=== PATIENT | female | born 1995 | race Caucasian/White ===

== ENCOUNTER 2020-04-20 04:09 | Outpatient (CLI) ==
[~2020-04-20] VITALS: Ht 154.9 cm; Wt 75.7 kg
[2020-04-20 04:38] VITALS: BP 124/78
[2020-04-20] MEDS ORDERED: PEPC40TA12 PO (04:46)
[2020-04-20] MEDS ORDERED: PRENTAB9 PO (04:46)
[2020-04-20 06:40] VITALS: BP 121/57
[2020-04-20] MEDS ORDERED: BUTORPHANOL 2 MG/ML INJ (J0595) IV ONE (06:45)
[2020-04-20] MEDS ORDERED: BICITRA 30ML SOLN UDC PO ONE (06:45)
[2020-04-20] MEDS ORDERED: PROMETHAZINE INJ 25 MG/ML VIAL (J2550) IV ONE (06:45)
[2020-04-20 07:13] VITALS: BP 118/62
[2020-04-20 07:20] VITALS: BP 118/62
--- NOTE | 2020-04-20 10:13 | IPNPDOC ---
Text Note Date of Service The patient was seen on 04/20/20. NOTE Triage Note (late entry) Radha is a 25yo with SIUP at 39w4d presenting with regular painful ctx that started around 0200. No LOF, no vaginal bleeding, good movement. Vitals wnl, afebrile General: WDWN, breathing through ctx Abdomen: soft, gravid, NTTP Extremities: no edema of BLE SCE (at 0500): 2/80/-3, posterior re-check by RN at 0630 secondary to patient discomfort: unchanged Cat I FHRT [place]: ctx q5min Assessment: Radha is a 25yo with SIUP at 39w4d presenting with regular painful ctx that started around 0200. Vitals wnl, benign exam. SCE 2/80/-3, unchanged over 1.5hr. Cat I FHRT. Plan: -2mg IV stadol x1 with 12.5mg IV phenergan x1 for pain control -After patient has some rest, will re-check SCE. If she has not had any cervical change and there remains Cat I FHRT, will discharge to home. If she progresses into labor, will admit. MD JEFFERSON Eng Fishbone I+O Manuel PAULINO I+O Vital Signs Date Time Temp Pulse Resp B/P (MAP) Pulse Ox O2 Delivery O2 Flow Rate FiO2 04/20/20 07:20 98.4 96 18 118/62 Room Air Grisel Aburto MD April 20, 2020 10:13
--- NOTE | 2020-04-24 08:21 | DSES ---
DATE OF ADMISSION: 04/20/2020 DATE OF DISCHARGE: 04/20/2020 24-year-old 1, para 0, last menstrual period (LMP) July 18, 2019. Estimated date of confinement (EDC) April 23, 2020 at 39 and 4, was admitted with moderate contractions and appeared to be in significant distress. On examination by the triage physician, she was found to be 2 cm high posterior. She has a category 1 strip. She was given Stadol and Phenergan. The contractions spaced out to 6-10 minutes, moderate variability after the Stadol worn off. She did not have any pain, was not complaining. Her blood pressure on discharge was 118/62, respirations 18, pulse 96, temperature 98.4, urine 1.015, pH and the rest was negative. Her risk factors is she has a history of migraines, showed magnesium. She had a neurological consult. She is on B6. She also has excessive weight gain. She has had 46 pounds weight gain to date. On examination prior to discharge again 2 cm, posterior high presenting part. No vaginal bleeding, no loss, no bleeding, no contractions. The patient was discharged with precautions and has an appointment on the 04/24/2020. She is encouraged to keep that appointment and anytime, she returns to bring her passport with her. Review precautions, premature rupture of membranes, bleeding, contractions 5-7 minutes apart, moderate intensity 40-60 seconds. kick chart, 10 over 24, 6 and 2. The patient expressed understanding will be discharged to follow up the office, Dr. EFFIE YAP
== END 2020-04-20 10:56 | disposition home or self-care (01) ==
LOC: M LDO 04:09
PROVIDERS: ATTEND Obstetrics & Gynecology
DX: O60.03 Preterm labor without delivery, third trimester (principal); Z3A.39 39 weeks gestation of pregnancy
CPT/HCPCS: 59025; 96374; 96375; G0378; G0463; J0595

== ENCOUNTER 2020-04-20 23:26 | Inpatient (IN) | payer OTHER ==
[~2020-04-20] VITALS: Ht 152.4 cm; Wt 67.0 kg
[~2020-04-20 23:26] MED LIST: PEPC40TA12 PO; PRENTAB9 PO
[2020-04-20 23:46] VITALS: BP 101/55
[2020-04-21] VITALS (61 sets, daily range): BP systolic 80–148; BP diastolic 45–86
[2020-04-21] MEDS ORDERED: LACTATED RINGER'S 1000 ML IV STA (00:06)
[2020-04-21] MEDS ORDERED: MORPHINE 10 MG/ML 1ML VIAL (J2270) IM ONE (00:15)
[2020-04-21] MEDS ORDERED: MORPHINE 10 MG/ML 1ML VIAL (J2270) IV ONE (00:15)
[2020-04-21] MEDS ORDERED: PROMETHAZINE INJ 25 MG/ML VIAL (J2550) IV ONE (00:15)
[2020-04-21 00:47] LABS: HEMATOCRIT 41.6 % (36.0-47.0); HEMOGLOBIN 13.9 g/dl (12.0-15.5); MEAN CORPUSCULAR HEMOGLOBIN 28.8 pg (27.0-33.0); MEAN CORPUSCULAR HGB CONC 33.4 g/dl (32.0-36.5); MEAN CORPUSCULAR VOLUME 86.3 fl (80.0-96.0); PLATELET COUNT, AUTOMATED 180 10^3/uL (150-450); RED BLOOD COUNT 4.82 10^6/uL (4.00-5.40)
[2020-04-21] MEDS: LR 1,000 ML IV SCH ×2 (00:58→09:14)
[2020-04-21] MEDS ORDERED: FAMOTIDINE IV BAG 20 MG in IV 1 EA IV ONE (01:00)
--- NOTE | 2020-04-21 01:04 | HPEPDOC ---
Obstetrical History & Physical General Date of Admission April 21, 2020 at 00:06 History of Present Illness patient is a 25 yo G1 @ 39+5wks gestation presents with regular painful contraction x 1 day. she was checked with her last visit yesterday to be 2 cm. denies LOF/VB. +FM. 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 Past Medical History Medical History migraines Surgical History: Denies/None Family History Significant Family History: No pertinent family hx Social History Marital Status: Family situation: Spouse/partner home * Smoker: non-smoker Alcohol: Denies Drugs: denies Imunizations Tdap status: current Influenza Status: current Allergies Coded Allergies: amoxicillin (Verified Allergy, Unknown, As a child, unknown reaction, 04/20/20) As a child, unknown reaction gardner (Verified Allergy, Unknown, throat swelling, 04/20/20) nickel (Verified Allergy, Unknown, rash, 04/20/20) red dye (Verified Allergy, Unknown, throat swelling, 04/20/20) Medications Scheduled Famotidine (Pepcid) 40 Mg Tablet, 1 TAB PO DAILY No.137/Iron/Folic Acd ( Vitamin Tablet) 1 Each Tablet, 1 TAB PO DAILY Physical Examination Physical Examination GENERAL: Alert and oriented times three. BREAST: . ABDOMEN: Gravid and non-tender to touch. FETUS: fetus is vertex (VTX) by [place]. HEART RATE: Regular rate and rhythm. LUNGS: Clear to auscultation (CTA). EXTREMITIES: No edema/erythema/tenderness. EFW: 3400gm Laboratory Data 24H LABS Laboratory Tests 2 04/21/20 00:08: Serology Scanned Report Hepatitis B Testing 04/21/20 00:37: Nucleated Red Blood Cells % (auto) 0.0 CBC/BMP Laboratory Tests 04/21/20 00:37 Pertinent Laboratoy Data Blood Type: O+ RBC Antibody Screen: Negative HIV: Negative Hepatitis B: Negative Rapid Plasma Reagin: Nonreactive Rubella: Immune Varicella: Immune Chlamydia/Gonorrhea: Negative Group B Streptococcus: Negative Glucose Tolerance Test: 60 Anatomy Ultrasound Placenta Location: Left Lateral Normal Anatomy: Yes Placenta Previa: No Vaginal Examination Dilation: 4 cm (per nursing check) Effacement: 90% Station: -3 Presentation: Cephalic presentation Assessment Heart Rate (FHR): 140 Variability: Moderate Accelerations: Positive Decelerations: None Tocometer Contractions: Yes Frequency: every 3-7 min. Assessment/Plan Assessment patient is a 25 yo @ 39+5wks admit to L&D for LABOR. Plan Admit and orient. Construction Accountant and consent. Diet: regular Group B Streptococcus (GBS) negative Labs and intravenous (IV) per unit protocol. Counseled on Pitocin for augmentation as needed. famotindine for acid reflux patient candidate for trial of labor. GRANT SMITH DO April 21, 2020 01:03
[2020-04-21] MEDS ORDERED: FENTANYL 2MCG/ML ROPIVACAINE 0.2% IN 0.9% NACL 100ML IVBAG As Ordered ONE (05:18)
[2020-04-21] MEDS ORDERED: ePHEDrine SULFATE 25 MG/5 ML(5MG/ML) SYRINGE As Ordered ONE (08:11)
[2020-04-21] MEDS ORDERED: ONDANSETRON 4MG/2ML VIAL IV PRN ×4 (08:15→13:15)
[2020-04-21] MEDS ORDERED: NALOXONE INJ 0.4MG/1ML VIAL (J2310 PER 1MG) IV PRN ×5 (08:15→12:35)
[2020-04-21] MEDS ORDERED: REFRIGERATOR IV KEYS XX PRN (08:15)
[2020-04-21] MEDS ORDERED: EPIDURAL/PCA KEYS XX PRN (08:15)
[2020-04-21] MEDS ORDERED: EPIDURAL COMMENT XX SCH (08:15)
[2020-04-21] MEDS ORDERED: FENTANYL/ROPIVACAINE/NACL BAG 100 ML EPIDURAL SCH (08:15)
[2020-04-21] MEDS ORDERED: diphenhydrAMINE 50MG/ML VIAL (J1200) IV PRN ×3 (08:15→12:35)
[2020-04-21] MEDS: ePHEDrine SULFATE 25 MG/5 ML(5MG/ML) SYRINGE IV PRN ×5 (08:16→08:58)
[2020-04-21] MEDS: LACTATED RINGER'S 1000 ML IV PRN ×2 (08:17→10:51)
[2020-04-21] MEDS ORDERED: LR IV ONE (09:00)
[2020-04-21] MEDS: ePHEDrine SULFATE 25 MG/5 ML(5MG/ML) SYRINGE IV SCH ×3 (09:02→09:06)
--- NOTE | 2020-04-21 10:19 | IPNPDOC ---
Text Note Date of Service The patient was seen on 04/21/20. NOTE Intrapartum Note Radha is a 25yo with SIUP at 39w5d admitted late last night for labor. She received epidural and is comfortable currently. Has had some low bp's since epidural (80's/40"s), so has received several doses of ephedrine. Afebrile SCE: 8/80/-1, AROM performed with clear fluid noted. FSE placed. Cat I-II FHRT with occasional variable decels, mod mckayla, +accels [place]: ctx q4-5min Will continue to closely monitor If continued hypotension, will request anesthesia provider to turn down epidural Plan to re-check in 2-4hr or earlier as indicated Safe to proceed Dr. Grisel Aburto MD VS,Manuel, I+O VS, Manuel, I+O Laboratory Tests 04/21/20 00:37 Vital Signs Date Time Temp Pulse Resp B/P (MAP) Pulse Ox O2 Delivery O2 Flow Rate FiO2 04/21/20 09:35 81 18 99/57 (71) 04/21/20 07:31 96.6 I&O- Last 24 Hours up to 6 AM 04/21/20 06:00 Output Total 700 ml Balance -700 ml Grisel Aburto MD April 21, 2020 10:19
--- NOTE | 2020-04-21 11:17 | IPNPDOC ---
Text Note Date of Service The patient was seen on 04/21/20. NOTE Intrapartum Note Epidural was turned down for continued hypotension and patient received another dose of ephedrine. Vitals now wnl, afebrile There continue to be recurrent deep variable decels, now with most ctx. +accels, moderate variability. [place]: ctx q3-4min SCE 9/C/-1 Discussed tracing abnormalities with patient and possibility of need for section if tracing worsens or she stops progressing Continuing to closely observe Dr. Grisel Aburto MD VS,Manuel, I+O VS, Manuel, I+O Laboratory Tests 04/21/20 00:37 Vital Signs Date Time Temp Pulse Resp B/P (MAP) Pulse Ox O2 Delivery O2 Flow Rate FiO2 04/21/20 10:45 74 18 107/57 (74) 04/21/20 10:28 98.2 I&O- Last 24 Hours up to 6 AM 04/21/20 05:59 Output Total 700 ml Balance -700 ml Grisel Aburto MD April 21, 2020 11:17
[2020-04-21] MEDS ORDERED: ceFAZolin 2 GM/D5W 50 ML IV BAG (J0690 PER 500MG) As Ordered ONE (11:33)
[2020-04-21] MEDS ORDERED: BICITRA 30ML SOLN UDC As Ordered ONE (11:33)
[2020-04-21] MEDS ORDERED: AZITHROMYCIN INJ 500MG VIAL (J0456 PER 500MG) As Ordered ONE (11:34)
[2020-04-21] MEDS ORDERED: LIDOCAINE 2% W/EPIN INJ 20ML **PRES FREE As Ordered ONE (11:44)
[2020-04-21] MEDS ORDERED: ceFAZolin SOD 2 GM in IV 1 EA IV ONE (11:45)
[2020-04-21] MEDS ORDERED: AZITHROMYCIN INJ 500 MG, VIAL MATE ADAPTER 1 EACH in D5W 250 ML IV ONE (11:45)
[2020-04-21] MEDS ORDERED: BICITRA 30ML SOLN UDC PO ONE (11:45)
[2020-04-21] MEDS ORDERED: OXYTOCIN INJ 10 UNITS/ML VIAL (J2590) As Ordered ONE ×2 (11:47→11:48)
[2020-04-21] MEDS ORDERED: PHENYLephrine HCL 500 MCG/5 ML (100MCG/ML) SYRINGE (J2370) As Ordered ONE (12:14)
[2020-04-21] MEDS ORDERED: ONDANSETRON 4MG/2ML VIAL As Ordered ONE (12:14)
[2020-04-21 12:23] LABS: CORD GAS ABE V -3.4; CORD GAS HCO3 V 22.2 MEQ/L; CORD GAS O2 SAT V 70.9 %; CORD GAS PCO2 V 42.1 mmHg; CORD GAS PH V 7.34 UNITS; CORD GAS PO2 V 32.4 mmHg; CORD GAS TCO2 V 23.5 MEQ/L
[2020-04-21] MEDS ORDERED: KETOROLAC 60 MG/2 ML VIAL As Ordered ONE (12:25)
[2020-04-21] MEDS ORDERED: MORPHINE PRES-FREE INJ 10 MG/10 ML VIAL (J2274) As Ordered ONE (12:25)
[2020-04-21] MEDS ORDERED: NALBUPHINE HCL 10 MG/ML AMP (J2300) IV PRN ×2 (12:35)
[2020-04-21] MEDS ORDERED: METOCLOPRAMIDE INJ 10MG/2ML VIAL (J2765 PER 1) IV PRN ×3 (12:35→13:15)
[2020-04-21] MEDS ORDERED: OXYTOCIN DRIP 30 UNITS in IV 1 EA IV SCH (13:01)
[2020-04-21] MEDS ORDERED: fentaNYL 100 MCG/2 ML INJECTION (J3010) IV PRN (13:15)
[2020-04-21] MEDS ORDERED: RHOGAM 300 MCG (1500 IU) INJ (J2790) IM SCH (13:15)
[2020-04-21] MEDS ORDERED: PERCOCET 5MG/325MG TAB PO PRN (13:15)
[2020-04-21] MEDS ORDERED: MEASLES,MUMPS,RUBELLA VACCINE INJ (MMR-II) (90707) SC SCH (13:15)
[2020-04-21] MEDS ORDERED: MEPERIDINE INJ 25 MG/ML VIAL (J2175) IV PRN (13:15)
[2020-04-21] MEDS ORDERED: OXYTOCIN 30 UNITS IN 0.9% NaCl 500ML IV BAG (J2590) As Ordered ONE (13:42)
[2020-04-21] MEDS: KETOROLAC 30 MG/ML 1ML VIAL IV SCH ×2 (17:43→23:57)
[2020-04-21] MEDS: DOCUSATE SODIUM 100 MG CAP PO SCH (21:45)
[2020-04-21] MEDS: PERCOCET 5MG/325MG TAB PO PRN (22:13)
[2020-04-22 02:15] VITALS: BP 102/54
[2020-04-22] MEDS: KETOROLAC 30 MG/ML 1ML VIAL IV SCH (05:28)
[2020-04-22] MEDS: PERCOCET 5MG/325MG TAB PO PRN ×3 (05:29→18:28)
[2020-04-22 06:22] VITALS: BP 104/53
[2020-04-22 06:46] LABS: HEMATOCRIT 34.3 % (36.0-47.0); MEAN CORPUSCULAR HEMOGLOBIN 28.6 pg (27.0-33.0); MEAN CORPUSCULAR HGB CONC 32.7 g/dl (32.0-36.5); MEAN CORPUSCULAR VOLUME 87.7 fl (80.0-96.0); PLATELET COUNT, AUTOMATED 141 10^3/uL (150-450); RED BLOOD COUNT 3.91 10^6/uL (4.00-5.40); WHITE BLOOD COUNT 13.3 10^3/uL (4.0-10.0)
[2020-04-22 06:58] LABS: HEMOGLOBIN 11.2 g/dl (12.0-15.5)
[2020-04-22] MEDS: PRENATAL VITAMINS CHEWABLE TABLET PO SCH (07:34)
[2020-04-22] MEDS: DOCUSATE SODIUM 100 MG CAP PO SCH ×2 (07:34→21:44)
--- NOTE | 2020-04-22 08:29 | DNPDOC ---
[facility] Delivery Note Delivery Note late entry DATE OF DELIVERY: 21 Apr 2020 PREDELIVERY DIAGNOSIS: 39w5d gestation and labor. NRFHT with recurrent deep variable decels POST DELIVERY DIAGNOSIS: Same as above Delivered. PROCEDURE: primary low transverse section HOSE WRAPPER: Dr. Grisel Aburto MD ANESTHESIA: epidural ESTIMATED BLOOD LOSS: 500 mL. FINDINGS: male infant, Score 9/9, nuchal cord times 1 DELIVERY SUMMARY: Radha is a 25yo [id number] s/p uncomplicated PLTCS on 04/21/2020 after presenting in active labor at 39w5d and progressing to 9cm but developing a persistent Cat II FHRT with deep recurrent variable decels that did not resolve despite all resuscitative efforts. Please see dictated op report for further details. MD Criselda Eng Katrina D MD April 22, 2020 08:29
--- NOTE | 2020-04-22 08:36 | IPNPDOC ---
Progress Note Date of Service: April 22, 2020 Day#: 1 Progress Note PPD 1/POD 1 SUBJECT: Radha is a 25yo [id number] s/p uncomplicated PLTCS on 04/21/2020 after presenting in active labor at 39w5d and progressing to 9cm but developing a persistent Cat II FHRT with deep recurrent variable decels that did not resolve despite all resuscitative efforts, doing well day # 1. She has been ambulating, voiding spontaneously without issue and tolerating regular diet. Breast feeding without issue. Reports lochia is like a normal period. No f/c/n/v/CP/SOB. OBJECTIVE: VITAL SIGNS: Within normal limits, afebrile. Alert and oriented times three. Abdomen: Fundus firm at U-2. Soft, appropriately tender to palpation with no rebound/guarding. Pfannensteil incision is intact with no erythema/induration/drainage. Steri strips overlying. Extremities: no pain with palpation of calves Labs: pre-op H/H: 13.9/41.6 post-op H/H: 11.2/34.3 ASSESSMENT: Radha is a 25yo [id number] s/p uncomplicated PLTCS on 04/21/2020 after presenting in active labor at 39w5d and progressing to 9cm but developing a persistent Cat II FHRT with deep recurrent variable decels that did not resolve despite all resuscitative efforts, doing well day # 1. Vitals within normal limits, afebrile, hemodynamically stable with no evidence of infection. PLAN: 1. Routine /post-op care 2. Percocet and Motrin for pain. 3. Encourage breast feeding and ambulation and use of IS 4. Regular diet 5. Ok to shower today 6. Possible discharge tomorrow if meeting all milestones Dr. Grisel Aburto MD VS, I&O, [facility] V[facility]/I&O Vital Signs Date Time Temp Pulse Resp B/P (MAP) Pulse Ox O2 Delivery O2 Flow Rate FiO2 04/22/20 06:22 98.2 82 18 104/53 (70) 97 04/21/20 17:04 Room Air I&O- Last 24 Hours up to 6 AM 04/22/20 06:00 Intake Total 6213 ml Output Total 3600 ml Balance 2613 ml Laboratory Data 24H LABS Laboratory Tests 2 04/21/20 12:14: Cord Venous Blood pH 7.340, Cord Venous Blood PCO2 42.1, Cord Venous Blood PO2 32.4, Cord Venous Blood HCO3 22.2, Cord Venous Blood Total CO2 23.5, Cord Venous Base Excess (Actual) -3.4, Cord Venous Base Excess (Standard) 21.0, Cord Venous Blood Oxygen Saturation 70.9 04/22/20 06:21: Nucleated Red Blood Cells % (auto) 0.0 CBC/BMP Laboratory Tests 04/22/20 06:21 Grisel Aburto MD April 22, 2020 08:36
[2020-04-22 10:00] VITALS: BP 97/53
[2020-04-22] MEDS: IBUPROFEN 800 MG TAB PO SCH ×2 (13:53→21:44)
[2020-04-22 14:00] VITALS: BP 105/57
[2020-04-22 18:00] VITALS: BP 118/57
[2020-04-22 22:00] VITALS: BP 117/68
[2020-04-23] MEDS: IBUPROFEN 800 MG TAB PO SCH ×2 (05:35→14:00)
[2020-04-23 06:00] VITALS: BP 120/65
[2020-04-23] MEDS: DOCUSATE SODIUM 100 MG CAP PO SCH (09:23)
[2020-04-23] MEDS: PRENATAL VITAMINS CHEWABLE TABLET PO SCH (09:24)
[2020-04-23] MEDS ORDERED: IBUP80TA PO (15:15)
[2020-04-23] MEDS ORDERED: PERCOCET PO ×2 (15:15)
--- NOTE | 2020-04-23 15:25 | IPNPDOC ---
Progress Note Date of Service: April 23, 2020 Day#: 2 Progress Note PPD 2/POD 2 SUBJECT: Radha is a 25yo [id number] s/p uncomplicated PLTCS on 04/21/2020 after presenting in active labor at 39w5d and progressing to 9cm but developing a persistent Cat II FHRT with deep recurrent variable decels that did not resolve despite all resuscitative efforts, doing well day # 2. She has been ambulating, voiding spontaneously without issue and tolerating regular diet. Breast feeding without issue. Reports lochia is like a normal period. No f/c/n/v/CP/SOB. OBJECTIVE: VITAL SIGNS: Within normal limits, afebrile. Alert and oriented times three. Abdomen: Fundus firm at U-2. Soft, appropriately tender to palpation with no rebound/guarding. Pfannensteil incision is intact with no erythema/induration/drainage. Steri strips overlying. Extremities: no pain with palpation of calves Labs: pre-op H/H: 13.9/41.6 post-op H/H: 11.2/34.3 ASSESSMENT: Radha is a 25yo [id number] s/p uncomplicated PLTCS on 04/21/2020 after presenting in active labor at 39w5d and progressing to 9cm but developing a persistent Cat II FHRT with deep recurrent variable decels that did not resolve despite all resuscitative efforts, doing well day # 2. Vitals within normal limits, afebrile, hemodynamically stable with no evidence of infection. PLAN: 1. Safe for discharge home 2. Percocet and Motrin for pain. 3. Encourage breast feeding and ambulation and use of IS 4. Regular diet 5. Vaginal rest no heavy lifting 6 weeks 6. Discussed return precautions at length 7. Next visit 2 week post-op incision check Dr. Grisel Aburto MD VS, I&O, 24H, Fishbone Vital Signs/I&O Vital Signs Date Time Temp Pulse Resp B/P (MAP) Pulse Ox O2 Delivery O2 Flow Rate FiO2 04/23/20 09:54 18 04/23/20 09:24 Room Air 04/23/20 06:00 98.9 78 120/65 (83) 97 Grisel Aburto MD April 23, 2020 15:25
--- NOTE | 2020-04-23 15:27 | DS.PDOC ---
Discharge Summary General Date of Admission April 21, 2020 at 00:06 Date of Discharge April 23, 2020 Discharge Summary PROCEDURES PERFORMED DURING STAY: primary low transverse section ADMITTING DIAGNOSES: 1. 39w5d active labor DISCHARGE DIAGNOSES: 1. 39w5d active labor 2. NRFHT with recurrent deep variable decels COMPLICATIONS/CHIEF COMPLAINT: Labor Check. HISTORY OF PRESENT ILLNESS/HOSPITAL COURSE: Radha is a 25yo [id number] s/p uncomplicated PLTCS on 04/21/2020 after presenting in active labor at 39w5d and progressing to 9cm but developing a persistent Cat II FHRT with deep recurrent variable decels that did not resolve despite all resuscitative efforts, doing well day # 2. Vitals within normal limits, afebrile, hemodynamically stable with no evidence of infection. She is meeting all milestones for discharge after having benign post-op course. DISCHARGE MEDICATIONS: Please see below. ALLERGIES: Please see below. PHYSICAL EXAMINATION ON DISCHARGE: VITAL SIGNS: Within normal limits, afebrile. Alert and oriented times three. Abdomen: Fundus firm at U-2. Soft, appropriately tender to palpation with no rebound/guarding. Pfannensteil incision is intact with no erythema/induration/drainage. Steri strips overlying. Extremities: no pain with palpation of calves LABORATORY DATA: Please see below. pre-op H/H: 13.9/41.6 post-op H/H: 11.2/34.3 DIET: regular DISCHARGE PLAN/INSTRUCTIONS: 1. Safe for discharge home 2. Percocet and Motrin for pain. 3. Encourage breast feeding and ambulation and use of IS 4. Regular diet 5. Vaginal rest no heavy lifting 6 weeks 6. Discussed return precautions at length 7. Next visit 2 week post-op incision check DISCHARGE CONDITION: Stable TIME SPENT ON DISCHARGE: Greater than [address] Grisel Aburto MD Vital Signs/I&Os Vital Signs Date Time Temp Pulse Resp B/P (MAP) Pulse Ox O2 Delivery O2 Flow Rate FiO2 04/23/20 09:54 18 04/23/20 09:24 Room Air 04/23/20 06:00 98.9 78 120/65 (83) 97 Discharge Medications Scheduled Famotidine (Pepcid) 40 Mg Tablet, 1 TAB PO DAILY, (Reported) Ibuprofen (Ibuprofen) 800 Mg Tablet, 800 MG PO Q8H No.137/Iron/Folic Acd ( Vitamin Tablet) 1 Each Tablet, 1 TAB PO DAILY, (Reported) Scheduled PRN Oxycodone/Acetaminophen (Oxycodone-Acetaminophen 5-325) 1 Each Tablet, 1 TAB PO Q4H PRN for MILD/MODERATE PAIN (PS 1-7) Oxycodone/Acetaminophen (Oxycodone-Acetaminophen 5-325) 1 Each Tablet, 2 TAB PO Q6H PRN for SEVERE PAIN (PS 8-10) Allergies Coded Allergies: gardner (Verified Allergy, Severe, throat swelling, 04/21/20) red dye (Verified Allergy, Severe, throat swelling, 04/21/20) nickel (Verified Allergy, Intermediate, rash, 04/21/20) amoxicillin (Verified Allergy, Unknown, As a child, unknown reaction, 04/21/20) Grisel Aburto MD April 23, 2020 15:27
--- NOTE | 2020-04-24 11:26 | RO ---
DATE OF OPERATION: 04/21/2020 STAFF SURGEON: Grisel Aburto MD HYDROPULPER OPERATOR: Yenni Cunningham CNM whose assistance for necessary for retraction, delivery of the baby and closure of the subsequent layers. CLINICAL SERVICE: Obstetrics INDICATIONS FOR OPERATION: Radha is a 25-year-old (G) 1, now para (P) 1-0-0-1, who was admitted at 39 weeks 5 days in active labor. She made excellent progress to 9, complete, minus 1, however developed a nonreassuring heart rate tracing with persistent category 2. Heart rate tracing having deep recurrent variables with each contraction. She was counseled for a primary low transverse section based on a nonreassuring heart rate tracing. PREOPERATIVE DIAGNOSES: 1. Fong intrauterine at 39 weeks 5 days in active labor. 2. Nonreassuring heart rate tracing. POSTOPERATIVE DIAGNOSES: 1. Fong intrauterine at 39 weeks 5 days in active labor. 2. Nonreassuring heart rate tracing. 3. In addition, there was a nuchal cord and a loop of umbilical cord in the lower uterine segment likely the reason for the heart rate abnormality. MATERIAL FORWARDED TO THE LAB FOR EXAMINATION: Venous cord gas. DESCRIPTION OF FINDINGS: Male in cephalic presentation. score 9 and 9. Weight 3060 grams or 6 pounds 12 ounces. Nuchal cord and loop of cord in the lower uterine segment. The ovaries, fallopian tubes, and uterus were normal in appearance. INFECTIOUS CLASSIFICATION: 2 ESTIMATED BLOOD LOSS: 500 mL. URINE OUTPUT: 100 mL INTRAVENOUS (IV) FLUIDS: 1000 mL of lactated Ringer's. OPERATION PERFORMED: Primary low transverse section. DESCRIPTION OF OPERATION: After obtaining informed consent, the patient was taken to the operating room. Dop tones in the operating room (OR) were in 120s. She had Nuñez catheter and bilateral sequential compression devices already in place secondary to her epidural. She was prepped and draped in normal sterile fashion in the dorsal supine position with a left lateral tilt. Time-out was performed to confirm patient name, date of , procedure, and indication. The team was in agreement. The team was in agreement. She had 2 grams of IV Ancef prophylactically as well as 500 mg of IV azithromycin. Epidural anesthesia was found be adequate using an Allis clamp. A Pfannenstiel skin incision was made with the scalpel carried through the underlying layer of fascia. Fascia was incised in the midline and the incision extended laterally with Crooks scissors. Superior and inferior aspects of the fascial incision was grasped with [place] clamps, elevated and underlying rectus muscles were dissected off bluntly and sharply. The peritoneum was entered digitally and the rectus muscles were in the midline. The peritoneal incision was extended superiorly and inferiorly with good visualization of the bladder. A bladder blade was inserted and the vesicouterine peritoneum was identified, grasped with pickups and entered sharply with Metzenbaum scissors. The incision was extended laterally and the bladder flap was created digitally. The bladder blade was reinserted and the lower uterine segment was scored in a transverse fashion with a scalpel. Uterus was entered bluntly and the incision was extended with traction. Bladder blade was removed and the 's head was elevated to the level of the incision. Fundal pressure was applied. Head was delivered atraumatically in occiput anterior (OA) position. Nuchal cord was reduced and the loop of cord was noted upon entry into the uterus. The anterior shoulder, posterior shoulder, and corpus were delivered without difficulty. Nose and mouth were suctioned with bulb suction. Cord was clamped times two and cut. Infant was handed off to the awaiting nursing team. Drafter Geological was present. Venous cord was obtained. Placenta was removed with traction on the cord and uterine massage and the uterus was exteriorized and cleared of all clot and debris. Uterine incision was repaired with #0 Vicryl suture in a running locking fashion. A second layer of the same suture was used to close the hysterotomy incision in an imbricating fashion. Uterine incision was inspected and hemostasis was noted. Posterior cul-de-sac was irrigated and the uterus was returned to the abdomen. Gutters were cleared of all clot and irrigated, and hemostasis was noted. Peritoneum was closed using #3-0 Vicryl suture in a running fashion. The rectus muscles were approximated with [id number] stitches using #3-0 Vicryl suture. The fascia was approximated with #0 Vicryl suture in a running fashion. Subcutaneous tissue was copiously irrigated. The Jayy's fascia was reapproximated using #3-0 Vicryl suture in running fashion. Skin edges were reapproximated using three inverted interrupted stitches using #3-0 Vicryl suture followed by a running subcuticular stitch using #4-0 Monocryl suture. The incision was cleaned using a wet lap and dried with a dry lap. Steri-Strips were applied in the usual fashion perpendicular to the Pfannenstiel incision. Steri-Strips with Telfa were layered on top of the Steri-Strips followed by a dry sterile towel. The surgical drapes were removed. Sterile towel was removed and a pressure dressing was applied over the entire surgical incision. Vagina was cleared of all blood clot without extra bleeding noted. The fundus was firm at the U minus 1 cm. All counts were correct times two. Procedure was without complications and patient tolerated the procedure well. She was taken to the recovery room on labor and delivery in stable condition.
== END 2020-04-23 16:50 | disposition home or self-care (01) | DRG 773 ==
LOC: M LDO 23:26 → M LDI 04-21 00:06 → M OBS 04-21 14:26
PROVIDERS: ADMIT Obstetrics & Gynecology; ATTEND Obstetrics & Gynecology
PROC: 10D00Z1 Extraction of Products of Conception, Low, Open Approach (ICD-10-PCS; principal; 2020-04-21 11:34)
DX: O76 Abnormality in fetal heart rate and rhythm complicating labor and delivery (principal); Z37.0 Single live birth; Z3A.39 39 weeks gestation of pregnancy; O69.81X0 Labor and delivery complicated by cord around neck, without compression, not applicable or unspecified